=== PATIENT | female | born 1995 | race African-American/Black ===

== ENCOUNTER 2016-09-19 14:14 | Emergency (ER) | payer MEDICAID ==
[~2016-09-19 14:14] MED LIST: METR500T PO; NITR100C62 PO; PREN1TAB58 PO; PROG50VI IM
[2016-09-19 14:28] VITALS: BP 121/93
[2016-09-19] MEDS ORDERED: BENZ100C PO (14:56)
[2016-09-19] MEDS ORDERED: PSEU120T58 PO (14:56)
[2016-09-19] MEDS ORDERED: AMOX875T PO (14:56)
--- NOTE | 2016-09-19 14:56 | PHYS DOC ---
Past Medical History Past Medical History: Diabetes-Type II Past Surgical History: Tubal ligation Additional Information: 3 per day Alcohol Use: Occasionally Drug Use: None Adult General Chief Complaint Chief Complaint: Congestion HPI HPI Patient is a 20 year old female with no significant medical history who presents with nasal congestion, coughing, left ear pain, and a sore throat that began 3 days ago. Patient is also complaining of subjective fevers and chills. Review of Systems Review of Systems Constitutional: Fevers and chills Eyes: Denies change in visual acuity, redness, or eye pain [] HENT: left ear pain, nasal congestion and sore throat [] Respiratory: cough Cardiovascular: No additional information not addressed in HPI [] GI: Denies abdominal pain, nausea, vomiting, bloody stools or diarrhea [] : Denies dysuria or hematuria [] Musculoskeletal: Denies back pain or joint pain [] Integument: Denies rash or skin lesions [] Neurologic: Denies headache, focal weakness or sensory changes [] Endocrine: Denies polyuria or polydipsia [] Allergies Allergies Allergies Coded Allergies Type Severity Reaction Last Updated Verified villa flavor Allergy Unknown throat swells, itching 01/19/14 Yes Physical Exam Physical Exam Constitutional: Well developed, well nourished, no acute distress, non-toxic appearance. [] HENT: Normocephalic, atraumatic, bilateral external ears normal, oropharynx moist, no oral exudates, nose normal. [] Left TM is mildly injected Patient sounds congested nasally Posterior pharynx with mild erythema, no exudate Eyes: PERRLA, EOMI, conjunctiva normal, no discharge. [] Neck: Normal range of motion, no tenderness, supple, no stridor. [] Cardiovascular:Heart rate regular rhythm, no murmur [] Lungs & Thorax: Bilateral breath sounds clear to auscultation [] Abdomen: Bowel sounds normal, soft, no tenderness, no masses, no pulsatile masses. [] Skin: Warm, dry, no erythema, no rash. [] Back: No tenderness, no CVA tenderness. [] Extremities: No tenderness, no cyanosis, no clubbing, ROM intact, no edema. [] Neurologic: Alert and oriented X 3, normal motor function, normal sensory function, no focal deficits noted. [] Psychologic: Affect normal, judgement normal, mood normal. [] Current Patient Data Vital Signs Vital Signs Date Time Temp Pulse Resp B/P Pulse Ox O2 Delivery O2 Flow Rate FiO2 09/19/16 14:28 98.3 120 16 100 Room Air 98.3 EKG EKG [] Radiology/Procedures Radiology/Procedures [] Course & Med Decision Making Course & Med Decision Making Pertinent Labs and Imaging studies reviewed. (See chart for details) Evaluation shows patient has otitis media, upper respiratory infection, and a cough. She was discharged with amoxicillin for 10 days. Tylenol /Motrin recommended for pain or fever. Saltwater gargles also recommended. Follow-up with primary care doctor in 1-2 weeks. Dragon Disclaimer Dragon Disclaimer This electronic medical record was generated, in whole or in part, using a voice recognition dictation system. Departure Departure Impression: Primary Impression: Cough Additional Impressions: Upper respiratory infection Pharyngitis, acute Otitis media Fever Disposition: 01 HOME, SELF-CARE Condition: STABLE Referrals: NO PCP (PCP) Follow-up with your own doctor in 1-2 weeks Patient Instructions: Cough, Adult, [id number], Fever, Adult, [id number], Otitis Media, Adult, Upper Respiratory Infection, Adult, [id number], Viral and Bacterial Pharyngitis Additional Instructions: You were seen for an ear infection, cough, congestion, sore throat, and fevers and chills. Take Tylenol every 4 hours Motrin every 6 hours for pain or fever. Use saltwater gargles. Complete your antibiotics. You can take [id number] decongestant with pseudoephedrine. Come back to the emergency room if symptoms worsen. Scripts Pseudoephedrine Hcl (Pseudoephedrine)120 Mg Tablet.er1 Tab PO BID #30 TAB Prov:MUTUNGAKEVEN CERTIFIED ART THERAPIST 09/19/16 Benzonatate (Tessalon Perle)100 Mg Capsule1 Cap PO TID #30 CAP Prov:MUTUNGA,KEVEN CERTIFIED ART THERAPIST 09/19/16 Amoxicillin 875 Mg Tablet1 Tab PO BID #20 TAB Prov:MUTUNGA,KEVEN CERTIFIED ART THERAPIST 09/19/16 Problem Qualifiers Additional Impressions: Upper respiratory infection URI type: unspecified URI Qualified Code: J06.9 - Acute upper respiratory infection, unspecified Pharyngitis, acute Pharyngitis/tonsillitis etiology: unspecified etiology Qualified Code: J02.9 - Acute pharyngitis, unspecified Otitis media Otitis media type: other nonsuppurative Laterality: left Chronicity: acute Recurrence: not specified as recurrent Qualified Code: H65.192 - Other acute nonsuppurative otitis media, left ear Fever Fever type: unspecified Qualified Code: R50.9 - Fever, unspecified KEVEN MORRISON CERTIFIED ART THERAPIST Sep 19, 2016 14:56
== END 2016-09-19 15:01 | disposition home or self-care (01) ==
LOC: ER 14:14
DX: J06.9 Acute upper respiratory infection, unspecified (principal); J02.9 Acute pharyngitis, unspecified; H65.192 Other acute nonsuppurative otitis media, left ear; R50.9 Fever, unspecified; E11.9 Type 2 diabetes mellitus without complications; Z91.02 Food additives allergy status
CPT/HCPCS: 99283

== ENCOUNTER 2017-12-25 08:49 | Emergency (ER) | payer MEDICAID ==
[2017-12-25 09:41] LABS: URINE HCG POC HCG NEGATIVE (Negative)
[2017-12-25 09:42] LABS: BILIRUBIN,URINE NEGATIVE (NEG); CLARITY,URINE CLEAR; COLOR,URINE YELLOW; GLUCOSE,URINE NEGATIVE (NEG); NITRITE,URINE NEGATIVE (NEG); PH,URINE 5.5; PROTEIN,URINE NEGATIVE (NEG-TRACE); UROBILINOGEN,URINE 0.2 mg/dL (0.2 mg/dL)
[2017-12-25 10:17] LABS: BACTERIA,URINE FEW /HPF (0-FEW); RBC,URINE 0 /HPF (0-2); SQUAMOUS EPITHELIAL CELL,UR FEW /LPF
[2017-12-26 14:32] LABS: CHLAMYDIA PROBE Negative (Negative); GC PROBE Negative (Negative)
== END 2017-12-25 10:28 | disposition home or self-care (01) ==
LOC: ER 08:49
DX: L25.9 Unspecified contact dermatitis, unspecified cause (principal); E11.9 Type 2 diabetes mellitus without complications; Z91.018 Allergy to other foods; F17.210 Nicotine dependence, cigarettes, uncomplicated
CPT/HCPCS: 81001; 81025; 87086; 87491; 87591; 99284; Q0111